=== PATIENT | female | born 1955 | race Caucasian/White ===

== ENCOUNTER 2020-10-22 08:11 | Outpatient (REF) | payer MEDICARE, MEDICAID, SELFPAY ==
[2020-10-22 09:15] LABS: Anion Gap 13 (12-20); Blood Urea Nitrogen 14 mg/dL (9-16); Calcium 9.5 mg/dL (8.4-10.2); Carbon Dioxide 25 mmol/L (22-29); Chloride 108 mmol/L (96-108); Estimated Glomerular Filt Rate > 60; Glucose Fasting 104 mg/dL (60-99); Potassium 4.8 mmol/L (3.3-5.1); Sodium 141 mmol/L (135-145)
[2020-10-22 09:37] LABS: Erythrocyte Sedimentation Rate 2 MM/HR (0-20)
[2020-10-22 09:51] LABS: Folate 10.5 ng/mL (> or = 4.0)
[2020-10-23 13:06] LABS: Lyme Abs Screen <0.90 index
[2020-10-24 21:57] LABS: IgA 215 mg/dL (70-320); IgG 1195 mg/dL (600-1540); IgM 227 mg/dL (50-300)
== END 2020-10-22 08:12 | disposition home or self-care (01) ==
LOC: HO.LAB 08:11
PROVIDERS: PCP Internal Medicine; Visit Provider Psychiatry & Neurology Neurology
DX: G62.9 Polyneuropathy, unspecified (principal)
CPT/HCPCS: 36415; 80048; 82746; 82784; 85652; 86334; 86617; 86618

== ENCOUNTER 2020-12-04 08:15 | Outpatient (REF) | payer MEDICARE, MEDICAID, SELFPAY | END 2020-12-04 08:16 | disposition home or self-care (01) | LOC: HO.LAB 08:15 | PROVIDERS: PCP Internal Medicine; Visit Provider Internal Medicine | DX: Z20.822 Contact with and (suspected) exposure to COVID-19 (principal) | CPT/HCPCS: C9803; U0003; U0005 ==